=== PATIENT | male | born 1990 | race Caucasian/White ===

== ENCOUNTER 2017-05-10 08:39 | Emergency (ER) | payer SELFPAY ==
--- NOTE | 2017-05-10 08:43 | ED Physician Documentation ---
General Adult - HISTORIAN Historian: patient - HPI Stated Complaint: Right Hand Pain/N & V Chief Complaint: Upper Extremity Injury Onset: days ago (3) Timing: still present Severity: mild Further Comments: yes (right index finger with swelling and pain for 3 days. He is not sure if he injured the finger. denies a fever. Pain woke him out of a sleep and he started to vomit from the pain. No fever.) Last known Well Code/Unknown Code: Unknown - ROS CONST: no problems EYES/ENT: none GI/: vomiting, nausea. denies: abdominal pain, problems urinating, diarrhea MS/SKIN/LYMPH: other (area on index finger ) NEURO/PSYCH: tingling (in right hand finger ) - PAST HX Past History: none Other History: none Surgeries/Procedures: none Immunizations: other (unknown ) Allergies/Adverse Reactions: Allergies Allergy/AdvReac Type Severity Reaction Status Date / Time No Known Allergies Allergy Unverified 05/10/17 09:24 Home Medications: Ambulatory Orders Medication Instructions Recorded NK [NK] 05/10/17 - SOCIAL HX Smoking History: cigarettes Alcohol Use: none Drug Use: none - FAMILY HX Family History: No - VITAL SIGNS Vital Signs: Vital Signs Temp Pulse Resp BP Pulse Ox 98.1 F 86 22 140/81 99 05/10/17 08:40 05/10/17 08:40 05/10/17 08:40 05/10/17 08:40 05/10/17 08:40 - REVIEWED ASSESSMENTS Nursing Assessment Reviewed: Yes Vitals Reviewed: Yes Progress - Progress Progress: 0930: resting quietly in room. No vomiting. DG ED Results Lab/Radiology - Radiology Radiology Impressions: Examination: Plain film right hand History: PT STATES PAIN IN 2ND DIGIT X 3 DAYS, NO KNOWN INJURY (Hx) Comparison exams: None available Findings: 4 views the right hand demonstrates old fracture deformity involving the 5th metacarpal. Remaining cortical margins are without gross abnormality. No fracture. No dislocation. No soft tissue abnormality. Impression: No acute appearing osseous abnormality Electronically signed on May 10, 2017 9:53:36 AM CDT by: Taj Mari [facility] Adult Physical Exam - PHYSICAL EXAM GENERAL APPEARANCE: mild distress EENT: eye inspection normal NECK: normal inspection RESPIRATORY: no resp distress, chest non-tender, breath sounds normal CVS: reg rate & rhythm, heart sounds normal, equal pulses, no murmur ABDOMEN: soft, normal bowel sounds, no distension, non-tender SKIN: other (right index finger with mild swelling at tip of finger. No wounds noted. No drainge. No warmth. Pulse + cap refill + sensation + FROM. ) EXTREMITIES: non-tender, normal range of motion, no evidence of injury NEURO: oriented X3, CN's nml as tested, motor nml, mood/affect nml, cognition normal Discharge Clincal Impression: Nausea Cellulitis Qualifiers: Site of cellulitis: extremity Site of cellulitis of extremity: finger Laterality: right Qualified Code(s): L03.011 - Cellulitis of right finger Referrals: Primary Doctor,No [Primary Care Provider] - 2 Days Additional Instructions: 1. Increase fluids 2. [place] diet advance as tolerated 3. Zofran 4 mg every 8 hours as needed for nausea 4. Bactrim take 1 by mouth BID X 10 days 5. Keep area clean and dry 6. Follow up with PCP in 2-4 days 7. Return to ER for any increase in symptoms or concerns Condition: Stable Disposition: 01 HOME, SELF-CARE Decision to Admit: NO Date of Decison to Admit: 05/10/17 Decision Time: 09:51
[2017-05-10] MEDS: ONDANSETRON HCL/PF 4 MG/ 2ML VIAL IM ONE (08:56)
[2017-05-10] MEDS: KETOROLAC TROMETHAMINE 60 MG/2 ML VIAL IM ONE (08:56)
[2017-05-10 09:04] LABS: BASOPHILS % 0.9 (0.0-1.5); EOSINOPHILS % 0.8 % (0.0-6.8); MEAN CORPUSCULAR HEMOGLOBIN 29.3 pg (28.0-34.0); MEAN CORPUSCULAR VOLUME 89.3 fl (80.0-100.0); MONOCYTES % 3.9 % (0.0-11.0)
[2017-05-10 09:20] LABS: eGFR (African) > 60; eGFR (Non-African) > 60
[2017-05-10 09:59] VITALS: BP 121/77
--- NOTE | 2017-05-10 10:13 | Diagnostic Imaging Report ---
AURELIA MAGANA [facility] [id number] [facility] [address] [id number] Report Submission Date: May 10, 2017 9:53:36 AM CDT Patient Study Name: CATHERINE GUTIERREZ Date: May 10, 2017 9:29:49 AM CDT Modality Type: DX Gender: M Description: UPPER EXTREMITY : 86 Institution: [facility] Physician: AURELIA MAGANA Examination: Plain film right hand History: PT STATES PAIN IN 2ND DIGIT X 3 DAYS, NO KNOWN INJURY (Hx) Comparison exams: None available Findings: 4 views the right hand demonstrates old fracture deformity involving the 5th metacarpal. Remaining cortical margins are without gross abnormality. No fracture. No dislocation. No soft tissue abnormality. Impression: No acute appearing osseous abnormality Electronically signed on May 10, 2017 9:53:36 AM CDT by: Taj DILLON
== END 2017-05-10 09:56 | disposition home or self-care (01) ==
LOC: ED 08:39
DX: M79.641 Pain in right hand (principal); R11.0 Nausea
CPT/HCPCS: 36415; 73130; 80053; 85025; 96372; 99283; J1885; J2405